=== PATIENT | female | born 1945 | race Caucasian/White ===

== ENCOUNTER 2017-07-11 14:15 | Observation (INO) ==
[2017-07-11 15:29] LABS: Basophils % 0.7 % (0.0-0.8); Eosinophils % 0.2 % (0.00-10.9); Hematocrit 40.1 VOL% (35.7-47.0); Hemoglobin 13.2 GM/DL (12.0-16.0); Immature Granulocytes % 0.4 %; Immature Granulocytes Absolute 0.02 #; Lymphocytes # 1.2 10*3/uL (1.4-4.0); Mean Corpuscular HGB Conc 32.9 GM/DL (32-36); Mean Corpuscular Hemoglobin 31 PG (27-34); Mean Corpuscular Volume 93.7 FL (87-102); Mean Platelet Volume 8.5 FL (9.6-12.0); Monocytes # 0.3 10*3/uL (0.11-0.8); Monocytes % 5.3 % (1.7-12.7); Neutrophils # 4.1 10*3/uL (1.4-7.4); Neutrophils % 72.4 % (38.7-73.9); Platelet Count 279 T/CUMM (130-400); Red Blood Count 4.28 MC/CUMM (3.8-5.5); Red Cell Distribution Width 12.6 % (9.3-17.3); White Blood Count 5.6 T/CUMM (4-12)
[2017-07-11 15:30] LABS: Apearance,Urine CLEAR (Clear); Bacteria,Urine Occasional /HPF (Few); Bilirubin,Urine Negative (Negative); Blood, Urine Negative (Negative); Glucose,Urine (UA) Negative (Negative); Hyaline Casts,Urine 1 /LPF (0-3); Ketones,Urine Negative (Negative); Mucus,Urine Occasional /LPF (Occasional); Nitrite,Urine Negative (Negative); Protein,Urine Negative; RBC,Urine 1 /HPF (0-4); Squamous Epithelial Cell,Urine Occasional /HPF (0-10); Urine Color Yellow (Yellow); Urine Specific Gravity 1.006 (1.001-1.035); Urine Urobilinogen < 2.0 EU/DL (0.2-1.0); WBC,Urine <1 /HPF (0-6)
[2017-07-11 15:54] LABS: Alanine Aminotransferase 28 U/L (13-56); Albumin 3.7 G/DL (3.4-5.0); Alkaline Phosphatase 133 U/L (45-117); Aspartate Amino Transferase 28 U/L (0-37); Bilirubin,Total < 0.39 MG/DL (0.2-1.0); Blood Urea Nitrogen 20 MG/DL (7-18); Calcium 9.4 MG/DL (8.5-10.1); Glucose 109 MG/DL (74-106); Osmolality,Calculated 278.7 MOS/KG (273-304); Potassium 4.6 MMOL/L (3.5-5.1); Sodium 138 MMOL/L (136-145); Total Protein 7.6 G/DL (6.4-8.3); Troponin I Only < 0.015 NG/ML (0.00-0.045)
[2017-07-11] MEDS ORDERED: ACETAMINOPHEN 325 MG TABLET PO PRN (17:38)
[2017-07-11] MEDS ORDERED: levETIRAcetam 500 MG TABLET PO SCH (20:00)
[2017-07-11] MEDS: SODIUM CHLORIDE 0.9% 1,000 ML IV SCH (20:52)
[2017-07-11] MEDS: ENOXAPARIN 40 MG/0.4 ML SYRINGE SUBCUT SCH (21:08)
[2017-07-11] MEDS: MELATONIN 3 MG TABLET PO SCH (21:08)
[2017-07-12 05:11] LABS: Basophils # 0.1 10*3/uL (0.0-0.2); Basophils % 0.8 % (0.0-0.8); Eosinophils # 0.1 10*3/uL (0.0-0.87); Eosinophils % 1.2 % (0.00-10.9); Hematocrit 37.3 VOL% (35.7-47.0); Hemoglobin 12.7 GM/DL (12.0-16.0); Immature Granulocytes % 0.4 %; Immature Granulocytes Absolute 0.03 #; Lymphocytes % 26.7 % (21.3-54.2); Mean Corpuscular Hemoglobin 32 PG (27-34); Mean Corpuscular Volume 92.6 FL (87-102); Mean Platelet Volume 8.7 FL (9.6-12.0); Monocytes # 0.6 10*3/uL (0.11-0.8); Neutrophils # 4.6 10*3/uL (1.4-7.4); Neutrophils % 62.9 % (38.7-73.9); Platelet Count 247 T/CUMM (130-400); Red Blood Count 4.03 MC/CUMM (3.8-5.5); Red Cell Distribution Width 12.9 % (9.3-17.3); White Blood Count 7.3 T/CUMM (4-12)
[2017-07-12] MEDS: LEVOTHYROXINE 25 MCG TABLET PO SCH (05:12)
[2017-07-12 05:48] LABS: Calcium 8.6 MG/DL (8.5-10.1); Potassium 4.2 MMOL/L (3.5-5.1); Thyroid Stimulating Hormone 1.03 uIU/ml (0.358-3.74)
[2017-07-12] MEDS ORDERED: CARVEDILOL 12.5 MG TABLET PO SCH ×2 (07:00→09:00)
[2017-07-12] MEDS: SODIUM CHLORIDE 0.9% 1,000 ML IV SCH ×2 (07:14→18:30)
[2017-07-12] MEDS: LISINOPRIL 20 MG TABLET PO SCH (10:13)
[2017-07-12] MEDS: ESTRADIOL 1 MG TABLET PO SCH (10:13)
[2017-07-12] MEDS: buPROPion SR 100 MG TABLET PO SCH (10:13)
[2017-07-12] MEDS: MULTIVITAMIN (CENTRUM) TABLET PO SCH (10:13)
[2017-07-12] MEDS: LORATADINE 10 MG TABLET PO SCH (10:13)
[2017-07-12] MEDS: THIAMINE 100 MG TABLET PO SCH (10:14)
[2017-07-12] MEDS: CARVEDILOL 12.5 MG TABLET PO SCH ×2 (10:14→21:21)
[2017-07-12] MEDS: POLYETHYLENE GLYCOL POWDER 17 GM PACK PO SCH (10:14)
[2017-07-12] MEDS: CALCIUM (CARBONATE)/VITAMIN D 600 MG-400 UNIT TABLET PO SCH (10:14)
[2017-07-12] MEDS: TOPIRAMATE 100 MG TABLET PO SCH (10:14)
[2017-07-12] MEDS: ESCITALOPRAM 10 MG TABLET PO SCH (10:14)
[2017-07-12] MEDS: POTASSIUM CHLORIDE 10 MEQ TABLET PO SCH (10:14)
[2017-07-12] MEDS ORDERED: SKIN HEALING OINT (AQUAPHOR) 50 GM TUBE TOP PRN (10:25)
[2017-07-12] MEDS: MELATONIN 3 MG TABLET PO SCH (21:21)
[2017-07-12] MEDS: ENOXAPARIN 40 MG/0.4 ML SYRINGE SUBCUT SCH (21:22)
[2017-07-13] MEDS: LEVOTHYROXINE 25 MCG TABLET PO SCH (05:37)
[2017-07-13] MEDS: SODIUM CHLORIDE 0.9% 1,000 ML IV SCH (09:09)
[2017-07-13] MEDS: CALCIUM (CARBONATE)/VITAMIN D 600 MG-400 UNIT TABLET PO SCH (09:12)
[2017-07-13] MEDS: ESTRADIOL 1 MG TABLET PO SCH (09:12)
[2017-07-13] MEDS: buPROPion SR 100 MG TABLET PO SCH (09:13)
[2017-07-13] MEDS: LORATADINE 10 MG TABLET PO SCH (09:13)
[2017-07-13] MEDS: MULTIVITAMIN (CENTRUM) TABLET PO SCH (09:13)
[2017-07-13] MEDS: LISINOPRIL 20 MG TABLET PO SCH (09:13)
[2017-07-13] MEDS: TOPIRAMATE 100 MG TABLET PO SCH (09:13)
[2017-07-13] MEDS: POTASSIUM CHLORIDE 10 MEQ TABLET PO SCH (09:14)
[2017-07-13] MEDS: ESCITALOPRAM 10 MG TABLET PO SCH (09:15)
[2017-07-13] MEDS: CARVEDILOL 12.5 MG TABLET PO SCH (09:15)
[2017-07-13] MEDS: THIAMINE 100 MG TABLET PO SCH (09:16)
[2017-07-13] MEDS: POLYETHYLENE GLYCOL POWDER 17 GM PACK PO SCH (09:16)
[2017-07-13 11:41] VITALS: BP 143/83
== END 2017-07-13 13:50 ==
LOC: EDUNIT# → EDBD → N.EDINP 14:15 → N.ED 14:15 → N.4E 18:43
PROVIDERS: ADMIT Hospitalist; ATTEND Hospitalist

== ENCOUNTER 2018-02-24 07:06 | Observation (INO) ==
[2018-02-24] MEDS ORDERED: ONDANSETRON 4 MG/2 ML VIAL IV STA (08:42)
[2018-02-24] MEDS ORDERED: SODIUM CHLORIDE 0.9% 500 ML IV STA (08:42)
[2018-02-24] MEDS ORDERED: PANTOPRAZOLE 40 MG VIAL IV STA (08:42)
[2018-02-24 09:16] LABS: Basophils # 0.1 10*3/uL (0.0-0.2); Basophils % 0.5 % (0.0-0.8); Eosinophils % 0.3 % (0.00-10.9); Hematocrit 41.1 VOL% (35.7-47.0); Hemoglobin 13.5 GM/DL (12.0-16.0); Immature Granulocytes % 0.3 %; Immature Granulocytes Absolute 0.03 #; Lymphocytes # 1.7 10*3/uL (1.4-4.0); Lymphocytes % 18.3 % (21.3-54.2); Mean Corpuscular HGB Conc 32.8 GM/DL (32-36); Mean Corpuscular Hemoglobin 31 PG (27-34); Mean Corpuscular Volume 93.4 FL (87-102); Mean Platelet Volume 10.1 FL (9.6-12.0); Monocytes # 1.2 10*3/uL (0.11-0.8); Monocytes % 12.7 % (1.7-12.7); Neutrophils # 6.2 10*3/uL (1.4-7.4); Neutrophils % 67.9 % (38.7-73.9); Platelet Count 252 T/CUMM (130-400); White Blood Count 9.2 T/CUMM (4-12)
[2018-02-24 09:28] LABS: PT Patient Result 10.4 SECS
[2018-02-24 09:43] LABS: Albumin 2.9 G/DL (3.4-5.0); Bilirubin,Total 0.6 MG/DL (0.2-1.0); Calcium 8.3 MG/DL (8.5-10.1); Osmolality,Calculated 284.7 MOS/KG (273-304); Potassium 4.6 MMOL/L (3.5-5.1); Total Protein 6.8 G/DL (6.4-8.3)
[2018-02-24] MEDS ORDERED: SODIUM CHLORIDE 0.9% 1,000 ML IV STA (09:45)
[2018-02-24] MEDS ORDERED: cefTRIAXone 1,000 MG in SODIUM CHLORIDE 0.9% 100 ML IV STA (10:49)
[2018-02-24] MEDS ORDERED: BISACODYL 5 MG TABLET PO PRN (11:18)
[2018-02-24] MEDS ORDERED: ONDANSETRON 4 MG/2 ML VIAL IV PRN (11:18)
[2018-02-24] MEDS ORDERED: ACETAMINOPHEN 325 MG TABLET PO PRN (11:18)
[2018-02-24] MEDS ORDERED: ENOXAPARIN 30 MG/0.3 ML SYRINGE SUBCUT SCH (12:00)
[2018-02-24 12:31] LABS: Apearance,Urine Slightly Hazy (Clear); Bacteria,Urine Many /HPF (Few); Bilirubin,Urine Negative (Negative); Blood, Urine Negative (Negative); Glucose,Urine (UA) Negative (Negative); Hyaline Casts,Urine 6 /LPF (0-3); Ketones,Urine 5 mg/dL (Negative); Mucus,Urine Few /LPF (Occasional); Nitrite,Urine Negative (Negative); Protein,Urine Negative; RBC,Urine 2 /HPF (0-4); Squamous Epithelial Cell,Urine Occasional /HPF (0-10); Urine Color Amber (Yellow); Urine Specific Gravity 1.021 (1.001-1.035); Urine Urobilinogen < 2.0 EU/DL (0.2-1.0); WBC,Urine 16 /HPF (0-6)
[2018-02-24] MEDS: SODIUM CHLORIDE 0.9% 1,000 ML IV SCH (19:40)
[2018-02-24] MEDS: MELATONIN 3 MG TABLET PO SCH (21:17)
[2018-02-24] MEDS: levETIRAcetam 500 MG TABLET PO SCH (21:18)
[2018-02-24] MEDS: DOCUSATE SODIUM 100 MG CAPSULE PO SCH (21:18)
[2018-02-25 05:24] LABS: Basophils # 0.1 10*3/uL (0.0-0.2); Basophils % 0.7 % (0.0-0.8); Eosinophils # 0.1 10*3/uL (0.0-0.87); Eosinophils % 1.7 % (0.00-10.9); Hematocrit 33.3 VOL% (35.7-47.0); Hemoglobin 10.6 GM/DL (12.0-16.0); Immature Granulocytes % 0.3 %; Immature Granulocytes Absolute 0.02 #; Lymphocytes # 1.5 10*3/uL (1.4-4.0); Mean Corpuscular HGB Conc 31.8 GM/DL (32-36); Mean Corpuscular Hemoglobin 31 PG (27-34); Mean Corpuscular Volume 95.7 FL (87-102); Mean Platelet Volume 9.5 FL (9.6-12.0); Monocytes % 13.7 % (1.7-12.7); Neutrophils # 4.3 10*3/uL (1.4-7.4); Neutrophils % 61.6 % (38.7-73.9); Platelet Count 212 T/CUMM (130-400); Red Blood Count 3.48 MC/CUMM (3.8-5.5); Red Cell Distribution Width 12.3 % (9.3-17.3); White Blood Count 6.9 T/CUMM (4-12)
[2018-02-25 06:19] LABS: Calcium 7.7 MG/DL (8.5-10.1); Osmolality,Calculated 286.3 MOS/KG (273-304); Potassium 4.3 MMOL/L (3.5-5.1); Thyroid Stimulating Hormone 0.8 uIU/ml (0.358-3.74)
[2018-02-25] MEDS: LEVOTHYROXINE 25 MCG TABLET PO SCH (07:41)
[2018-02-25] MEDS: busPIRone 10 MG TABLET PO SCH (10:58)
[2018-02-25] MEDS: DOCUSATE SODIUM 100 MG CAPSULE PO SCH ×2 (10:58→22:11)
[2018-02-25] MEDS: THIAMINE 100 MG TABLET PO SCH (10:58)
[2018-02-25] MEDS: MULTIVITAMIN (CENTRUM) TABLET PO SCH (10:58)
[2018-02-25] MEDS: buPROPion SR 100 MG TABLET PO SCH (10:58)
[2018-02-25] MEDS: ESCITALOPRAM 10 MG TABLET PO SCH (10:58)
[2018-02-25] MEDS: SOLIFENACIN 5 MG TABLET PO SCH (10:58)
[2018-02-25] MEDS: PANTOPRAZOLE 40 MG TABLET PO SCH (10:59)
[2018-02-25] MEDS: LORATADINE 10 MG TABLET PO SCH (10:59)
[2018-02-25] MEDS: CALCIUM (CARBONATE)/VITAMIN D 600 MG-400 UNIT TABLET PO SCH (10:59)
[2018-02-25] MEDS: TOPIRAMATE 100 MG TABLET PO SCH (11:01)
[2018-02-25] MEDS: levETIRAcetam 500 MG TABLET PO SCH ×2 (11:01→22:11)
[2018-02-25] MEDS: POLYETHYLENE GLYCOL POWDER 17 GM PACK PO SCH (11:02)
[2018-02-25] MEDS: SODIUM CHLORIDE 0.9% 1,000 ML IV SCH ×2 (11:41→14:50)
[2018-02-25] MEDS ORDERED: BISACODYL 5 MG TABLET PO ONE (12:00)
[2018-02-25] MEDS ORDERED: POLYETHYLENE GLYCOL POWDER 255 GM BOTTLE PO ONE (12:38)
[2018-02-25] MEDS: risperiDONE 0.5 MG TABLET PO SCH (13:19)
[2018-02-25] MEDS: cefTRIAXone 1,000 MG in SYRINGE 1 EACH IV SCH (15:58)
[2018-02-25] MEDS ORDERED: MAGNESIUM CITRATE 300 ML BOTTLE PO ONE (20:39)
[2018-02-25] MEDS: MELATONIN 3 MG TABLET PO SCH (22:11)
[2018-02-26] MEDS: SODIUM CHLORIDE 0.9% 1,000 ML IV SCH (06:00)
[2018-02-26] MEDS: LEVOTHYROXINE 25 MCG TABLET PO SCH (06:01)
[2018-02-26 06:21] LABS: Basophils % 0.7 % (0.0-0.8); Eosinophils # 0.1 10*3/uL (0.0-0.87); Eosinophils % 2.1 % (0.00-10.9); Hematocrit 34.2 VOL% (35.7-47.0); Immature Granulocytes % 0.2 %; Immature Granulocytes Absolute 0.01 #; Lymphocytes # 1.2 10*3/uL (1.4-4.0); Lymphocytes % 20.5 % (21.3-54.2); Mean Corpuscular HGB Conc 32.2 GM/DL (32-36); Mean Corpuscular Hemoglobin 31 PG (27-34); Mean Platelet Volume 8.8 FL (9.6-12.0); Monocytes # 0.7 10*3/uL (0.11-0.8); Neutrophils # 3.6 10*3/uL (1.4-7.4); Neutrophils % 63.5 % (38.7-73.9); Platelet Count 211 T/CUMM (130-400); Red Cell Distribution Width 12.1 % (9.3-17.3); White Blood Count 5.6 T/CUMM (4-12)
[2018-02-26 06:29] LABS: INR 0.9; PT Patient Result 9.8 SECS
[2018-02-26 06:50] LABS: Calcium 8.2 MG/DL (8.5-10.1); Osmolality,Calculated 275.5 MOS/KG (273-304); Potassium 3.4 MMOL/L (3.5-5.1)
[2018-02-26] MEDS ORDERED: PROPOFOL 200 MG/20 ML VIAL IV ONE (10:00)
[2018-02-26] MEDS ORDERED: LIDOCAINE 100 MG/5 ML SYRINGE ONE (10:00)
[2018-02-26] MEDS: busPIRone 10 MG TABLET PO SCH (14:50)
[2018-02-26] MEDS: MULTIVITAMIN (CENTRUM) TABLET PO SCH (14:50)
[2018-02-26] MEDS: CALCIUM (CARBONATE)/VITAMIN D 600 MG-400 UNIT TABLET PO SCH (14:50)
[2018-02-26] MEDS: LORATADINE 10 MG TABLET PO SCH (14:51)
[2018-02-26] MEDS: POLYETHYLENE GLYCOL POWDER 17 GM PACK PO SCH (14:51)
[2018-02-26] MEDS: levETIRAcetam 500 MG TABLET PO SCH ×2 (14:51→20:17)
[2018-02-26] MEDS: PANTOPRAZOLE 40 MG TABLET PO SCH (14:51)
[2018-02-26] MEDS: TOPIRAMATE 100 MG TABLET PO SCH (14:51)
[2018-02-26] MEDS: ESCITALOPRAM 10 MG TABLET PO SCH (14:51)
[2018-02-26] MEDS: DOCUSATE SODIUM 100 MG CAPSULE PO SCH ×2 (14:51→20:17)
[2018-02-26] MEDS: SOLIFENACIN 5 MG TABLET PO SCH (14:52)
[2018-02-26] MEDS: THIAMINE 100 MG TABLET PO SCH (14:52)
[2018-02-26] MEDS: buPROPion SR 100 MG TABLET PO SCH (14:52)
[2018-02-26] MEDS: cefTRIAXone 1,000 MG in SYRINGE 1 EACH IV SCH (15:11)
[2018-02-26] MEDS: risperiDONE 0.5 MG TABLET PO SCH (15:11)
[2018-02-26] MEDS: MELATONIN 3 MG TABLET PO SCH (20:17)
[2018-02-27] MEDS: SODIUM CHLORIDE 0.9% 1,000 ML IV SCH ×2 (01:53→10:48)
[2018-02-27 05:38] LABS: Basophils % 0.7 % (0.0-0.8); Eosinophils # 0.2 10*3/uL (0.0-0.87); Eosinophils % 4.2 % (0.00-10.9); Hematocrit 30.7 VOL% (35.7-47.0); Immature Granulocytes % 0.3 %; Immature Granulocytes Absolute 0.02 #; Lymphocytes # 1.3 10*3/uL (1.4-4.0); Lymphocytes % 23.3 % (21.3-54.2); Mean Corpuscular HGB Conc 32.6 GM/DL (32-36); Mean Corpuscular Hemoglobin 31 PG (27-34); Mean Corpuscular Volume 93.9 FL (87-102); Mean Platelet Volume 9.8 FL (9.6-12.0); Monocytes # 0.7 10*3/uL (0.11-0.8); Monocytes % 11.5 % (1.7-12.7); Neutrophils # 3.4 10*3/uL (1.4-7.4); Platelet Count 218 T/CUMM (130-400); Red Blood Count 3.27 MC/CUMM (3.8-5.5); Red Cell Distribution Width 12.2 % (9.3-17.3); White Blood Count 5.7 T/CUMM (4-12)
[2018-02-27 06:08] LABS: Calcium 7.7 MG/DL (8.5-10.1); Osmolality,Calculated 281.3 MOS/KG (273-304); Potassium 3.7 MMOL/L (3.5-5.1)
[2018-02-27] MEDS: LEVOTHYROXINE 25 MCG TABLET PO SCH (06:56)
[2018-02-27] MEDS: LORATADINE 10 MG TABLET PO SCH (08:26)
[2018-02-27] MEDS: busPIRone 10 MG TABLET PO SCH (08:26)
[2018-02-27] MEDS: levETIRAcetam 500 MG TABLET PO SCH (08:26)
[2018-02-27] MEDS: buPROPion SR 100 MG TABLET PO SCH (08:26)
[2018-02-27] MEDS: SOLIFENACIN 5 MG TABLET PO SCH (08:26)
[2018-02-27] MEDS: CALCIUM (CARBONATE)/VITAMIN D 600 MG-400 UNIT TABLET PO SCH (08:26)
[2018-02-27] MEDS: PANTOPRAZOLE 40 MG TABLET PO SCH (08:26)
[2018-02-27] MEDS: ESCITALOPRAM 10 MG TABLET PO SCH (08:26)
[2018-02-27] MEDS: POLYETHYLENE GLYCOL POWDER 17 GM PACK PO SCH (08:26)
[2018-02-27] MEDS: THIAMINE 100 MG TABLET PO SCH (08:26)
[2018-02-27] MEDS: TOPIRAMATE 100 MG TABLET PO SCH (08:26)
[2018-02-27] MEDS: MULTIVITAMIN (CENTRUM) TABLET PO SCH (08:26)
[2018-02-27] MEDS: DOCUSATE SODIUM 100 MG CAPSULE PO SCH (08:27)
[2018-02-27] MEDS ORDERED: ZINC OXIDE PASTE 113 GM TUBE TOP SCH (11:00)
[2018-02-27] MEDS: risperiDONE 0.5 MG TABLET PO SCH (13:09)
[2018-02-27 13:23] VITALS: BP 154/86
[2018-02-27] MEDS: cefTRIAXone 1,000 MG in SYRINGE 1 EACH IV SCH (14:04)
== END 2018-02-27 14:10 ==
LOC: EDUNIT# → EDBD → N.ED 07:06 → N.EDINP 07:06 → SUATTDRO 11:18 → N.EDINP 14:08 → N.5E 14:17
PROVIDERS: ADMIT Internal Medicine; ATTEND Internal Medicine Cardiovascular Disease

== ENCOUNTER 2018-08-12 08:04 | Inpatient (IN) ==
[2018-08-12] MEDS ORDERED: SODIUM CHLORIDE 0.9% 1,000 ML IV STA ×2 (08:31→09:42)
[2018-08-12 09:12] LABS: Basophils % 0.6 % (0.0-0.8); Eosinophils % 0.1 % (0.00-10.9); Hematocrit 43.6 VOL% (35.7-47.0); Hemoglobin 13.6 GM/DL (12.0-16.0); Immature Granulocytes % 0.3 %; Immature Granulocytes Absolute 0.02 #; Lymphocytes # 1.2 10*3/uL (1.4-4.0); Lymphocytes % 17.2 % (21.3-54.2); Mean Corpuscular HGB Conc 31.2 GM/DL (32-36); Mean Corpuscular Volume 99.8 FL (87-102); Mean Platelet Volume 9.1 FL (9.6-12.0); Monocytes % 6.3 % (1.7-12.7); Neutrophils % 75.5 % (38.7-73.9); Platelet Count 292 T/CUMM (130-400); Red Blood Count 4.37 MC/CUMM (3.8-5.5); Red Cell Distribution Width 13.2 % (9.3-17.3)
[2018-08-12 09:21] LABS: PT Patient Result 10.4 SECS; Partial Thromboplastin Time 28.4 SECS (0-40)
[2018-08-12 09:29] LABS: Albumin 3.5 G/DL (3.4-5.0); Bilirubin,Total 0.4 MG/DL (0.2-1.0); Calcium 8.8 MG/DL (8.5-10.1); Osmolality,Calculated 289.3 MOS/KG (273-304); Total Protein 6.8 G/DL (6.4-8.3)
[2018-08-12] MEDS ORDERED: NOREPINEPHRINE 4 MG/4 ML VIAL IV ONE (09:44)
[2018-08-12 09:51] LABS: Apearance,Urine CLEAR (Clear); Bilirubin,Urine Negative (Negative); Blood, Urine Negative (Negative); Glucose,Urine (UA) Negative (Negative); Hyaline Casts,Urine 12 /LPF (0-3); Ketones,Urine Negative (Negative); Mucus,Urine Occasional /LPF (Occasional); Nitrite,Urine Negative (Negative); Protein,Urine Negative; RBC,Urine <1 /HPF (0-4); Squamous Epithelial Cell,Urine Occasional /HPF (0-10); Urine Color Amber (Yellow); Urine Specific Gravity 1.014 (1.001-1.035); Urine Urobilinogen < 2.0 EU/DL (0.2-1.0); WBC,Urine 1 /HPF (0-6)
[2018-08-12 10:01] LABS: Barbiturates Screen,Urine Negative (Negative); Benzodiazepines Screen,Urine Negative (Negative); Cannabinoid Screen,Urine Negative (Negative); Opiate Screen,Urine Negative (Negative); Phencyclidine Screen,Urine Negative (Negative)
[2018-08-12] MEDS: NOREPINEPHRINE 8 MG in SODIUM CHLORIDE 0.9% 242 ML IV PRN ×3 (10:04→10:15)
[2018-08-12] MEDS ORDERED: LACTULOSE 20 GM/30 ML UDCUP PO PRN (11:00)
[2018-08-12] MEDS ORDERED: ALBUTEROL 2.5 MG/3 ML NEB RESP TX PRN (11:00)
[2018-08-12] MEDS ORDERED: ONDANSETRON 4 MG/2 ML VIAL IV PRN (11:00)
[2018-08-12] MEDS ORDERED: ACETAMINOPHEN 325 MG TABLET PO PRN (11:00)
[2018-08-12] MEDS ORDERED: PROMETHAZINE 25 MG/1 ML VIAL IM PRN (11:00)
[2018-08-12] MEDS ORDERED: SODIUM CHLORIDE 0.9% 500 ML IV STA (11:02)
[2018-08-12] MEDS ORDERED: PIPERACILLIN/TAZOBACTAM 3,375 MG in SODIUM CHLORIDE 0.9% 100 ML IV STA (11:06)
[2018-08-12] MEDS ORDERED: NALOXONE 0.4 MG/ML VIAL ONE (11:17)
[2018-08-12] MEDS ORDERED: NALOXONE 0.4 MG/ML VIAL IV STA (11:20)
[2018-08-12] MEDS: SODIUM CHLORIDE 0.9% 1,000 ML IV SCH ×2 (12:18→20:40)
[2018-08-12 12:21] LABS: ABG Base Excess -7.9 MMOL/L (-2.5-2.5); ABG HCO3 18.1 MMOL/L (20-26); ABG Oxygen Saturation 92.9 % (95-100); ABG PCO2 47.6 MM HG (35-48); ABG PH 7.232 (7.35-7.45); ABG PO2 79.4 MM HG (80-95); ABG TCO2 17.9 MMOL/L (23-27); Allen Test Positive
[2018-08-12] MEDS: ENOXAPARIN 30 MG/0.3 ML SYRINGE SUBCUT SCH (13:10)
[2018-08-12] MEDS: FAMOTIDINE 20 MG/2 ML VIAL IV SCH (13:12)
[2018-08-12] MEDS ORDERED: LORazepam 2 MG/1 ML VIAL IV PRN (13:52)
[2018-08-12] MEDS ORDERED: LORazepam 2 MG/1 ML VIAL ONE (14:03)
[2018-08-12] MEDS ORDERED: GLUCAGON 1 MG VIAL IM PRN (14:12)
[2018-08-12] MEDS ORDERED: DEXTROSE 50% 25 GM/50 ML SYRINGE IV PRN (14:12)
[2018-08-12 15:11] LABS: Calcium 7.6 MG/DL (8.5-10.1); Osmolality,Calculated 293.8 MOS/KG (273-304)
[2018-08-12] MEDS: INSULIN LISPRO 100 UNIT/ML SUBCUT SCH ×2 (17:00→21:44)
[2018-08-12] MEDS: LORazepam 2 MG/1 ML VIAL IV PRN (17:57)
[2018-08-12] MEDS: PIPERACILLIN/TAZOBACTAM 3,375 MG in SODIUM CHLORIDE 0.9% 100 ML IV SCH (20:30)
[2018-08-12] MEDS: TOPIRAMATE 25 MG TABLET PO SCH (21:45)
[2018-08-13] MEDS: FAMOTIDINE 20 MG/2 ML VIAL IV SCH ×2 (02:23→13:05)
[2018-08-13 04:44] LABS: Basophils # 0.1 10*3/uL (0.0-0.2); Eosinophils # 0.1 10*3/uL (0.0-0.87); Eosinophils % 1.9 % (0.00-10.9); Hematocrit 37.5 VOL% (35.7-47.0); Hemoglobin 11.5 GM/DL (12.0-16.0); Immature Granulocytes % 0.3 %; Immature Granulocytes Absolute 0.02 #; Lymphocytes # 1.4 10*3/uL (1.4-4.0); Lymphocytes % 23.6 % (21.3-54.2); Mean Corpuscular HGB Conc 30.7 GM/DL (32-36); Mean Corpuscular Volume 101.9 FL (87-102); Mean Platelet Volume 9.2 FL (9.6-12.0); Neutrophils % 59.2 % (38.7-73.9); Platelet Count 195 T/CUMM (130-400); Red Blood Count 3.68 MC/CUMM (3.8-5.5); Red Cell Distribution Width 13.1 % (9.3-17.3); White Blood Count 5.8 T/CUMM (4-12)
[2018-08-13] MEDS: PIPERACILLIN/TAZOBACTAM 3,375 MG in SODIUM CHLORIDE 0.9% 100 ML IV SCH ×3 (04:48→20:20)
[2018-08-13 04:52] LABS: Risk Ratio 4.33; VLDL CHOLESTEROL 31.6 MG/DL
[2018-08-13] MEDS: LEVOTHYROXINE 25 MCG TABLET PO SCH (05:23)
[2018-08-13] MEDS: SODIUM CHLORIDE 0.9% 1,000 ML IV SCH (05:51)
[2018-08-13] MEDS: LORazepam 2 MG/1 ML VIAL IV PRN (05:51)
[2018-08-13 07:36] LABS: Osmolality,Calculated 298.3 MOS/KG (273-304)
[2018-08-13] MEDS: INSULIN LISPRO 100 UNIT/ML SUBCUT SCH ×4 (07:40→22:19)
[2018-08-13] MEDS ORDERED: ERGOCALCIFEROL 50,000 UNIT CAPSULE PO SCH (09:00)
[2018-08-13] MEDS: THIAMINE 100 MG TABLET PO SCH (09:46)
[2018-08-13] MEDS: MULTIVITAMIN (CENTRUM) TABLET PO SCH (09:46)
[2018-08-13] MEDS: levETIRAcetam 500 MG TABLET PO SCH (10:52)
[2018-08-13] MEDS: ENOXAPARIN 30 MG/0.3 ML SYRINGE SUBCUT SCH (11:29)
[2018-08-13] MEDS: DEXTROSE 5% NACL 0.45% 1,000 ML IV SCH ×2 (11:29→22:20)
[2018-08-13] MEDS: CARVEDILOL 12.5 MG TABLET PO SCH (15:15)
[2018-08-13] MEDS ORDERED: ZIPRASIDONE 20 MG/1 ML VIAL IM ONE (15:15)
[2018-08-13] MEDS: TOPIRAMATE 25 MG TABLET PO SCH (22:20)
[2018-08-14] MEDS: FAMOTIDINE 20 MG/2 ML VIAL IV SCH ×2 (01:50→15:44)
[2018-08-14] MEDS: PIPERACILLIN/TAZOBACTAM 3,375 MG in SODIUM CHLORIDE 0.9% 100 ML IV SCH ×2 (03:04→12:08)
[2018-08-14 04:43] LABS: Basophils # 0.1 10*3/uL (0.0-0.2); Basophils % 0.8 % (0.0-0.8); Eosinophils # 0.2 10*3/uL (0.0-0.87); Eosinophils % 2.5 % (0.00-10.9); Hematocrit 35.8 VOL% (35.7-47.0); Hemoglobin 11.9 GM/DL (12.0-16.0); Immature Granulocytes % 0.2 %; Immature Granulocytes Absolute 0.01 #; Lymphocytes # 1.9 10*3/uL (1.4-4.0); Lymphocytes % 30.1 % (21.3-54.2); Mean Corpuscular HGB Conc 33.2 GM/DL (32-36); Mean Corpuscular Volume 94.5 FL (87-102); Mean Platelet Volume 9.5 FL (9.6-12.0); Monocytes % 11.2 % (1.7-12.7); Neutrophils % 55.2 % (38.7-73.9); Platelet Count 242 T/CUMM (130-400); Red Blood Count 3.79 MC/CUMM (3.8-5.5); Red Cell Distribution Width 12.7 % (9.3-17.3); White Blood Count 6.3 T/CUMM (4-12)
[2018-08-14 04:49] LABS: Calcium 8.4 MG/DL (8.5-10.1); Osmolality,Calculated 280.1 MOS/KG (273-304)
[2018-08-14] MEDS: LEVOTHYROXINE 25 MCG TABLET PO SCH (05:43)
[2018-08-14] MEDS: DEXTROSE 5% NACL 0.45% 1,000 ML IV SCH (06:20)
[2018-08-14] MEDS ORDERED: MAGNESIUM SULF RIDER 2 GM in PREMIX 1 EACH IV ONE (07:07)
[2018-08-14] MEDS ORDERED: POTASSIUM CHLORIDE 20 MEQ/15 ML UDCUP PO ONE (07:08)
[2018-08-14] MEDS ORDERED: POTASSIUM CHLORIDE INJ 100 MEQ in SODIUM CHLORIDE 0.9% 1,000 ML IV SCH (07:30)
[2018-08-14] MEDS: INSULIN LISPRO 100 UNIT/ML SUBCUT SCH ×4 (10:44→21:48)
[2018-08-14] MEDS: THIAMINE 100 MG TABLET PO SCH (12:07)
[2018-08-14] MEDS: ENOXAPARIN 30 MG/0.3 ML SYRINGE SUBCUT SCH (12:07)
[2018-08-14] MEDS: MULTIVITAMIN (CENTRUM) TABLET PO SCH (12:07)
[2018-08-14] MEDS: levETIRAcetam 500 MG TABLET PO SCH (12:07)
[2018-08-14] MEDS: CARVEDILOL 12.5 MG TABLET PO SCH ×2 (12:07→15:45)
[2018-08-14] MEDS ORDERED: ACETAMINOPHEN 325 MG TABLET PO PRN (13:24)
[2018-08-14 15:15] LABS: Levetiracetam (Keppra) 16.8 mcg/mL
[2018-08-14] MEDS: sulfaSALAzine 500 MG TABLET PO SCH ×2 (15:45→22:28)
[2018-08-14] MEDS ORDERED: TOPIRAMATE 100 MG TABLET PO SCH (20:00)
[2018-08-14] MEDS: TOPIRAMATE 25 MG TABLET PO SCH (21:48)
[2018-08-15] MEDS: FAMOTIDINE 20 MG/2 ML VIAL IV SCH (03:01)
[2018-08-15 04:53] LABS: Calcium 8.5 MG/DL (8.5-10.1); Osmolality,Calculated 280.3 MOS/KG (273-304)
[2018-08-15] MEDS: sulfaSALAzine 500 MG TABLET PO SCH (05:24)
[2018-08-15] MEDS: LEVOTHYROXINE 25 MCG TABLET PO SCH (05:24)
[2018-08-15] MEDS ORDERED: SOLIFENACIN 5 MG TABLET PO SCH (08:00)
[2018-08-15] MEDS ORDERED: CALCIUM (CARBONATE)/VITAMIN D 600 MG-400 UNIT TABLET PO SCH (08:00)
[2018-08-15] MEDS ORDERED: ESCITALOPRAM 10 MG TABLET PO SCH (08:00)
[2018-08-15] MEDS: THIAMINE 100 MG TABLET PO SCH (08:54)
[2018-08-15] MEDS: MULTIVITAMIN (CENTRUM) TABLET PO SCH (08:54)
[2018-08-15] MEDS: CARVEDILOL 12.5 MG TABLET PO SCH (08:54)
[2018-08-15] MEDS: levETIRAcetam 500 MG TABLET PO SCH (08:54)
[2018-08-15] MEDS: INSULIN LISPRO 100 UNIT/ML SUBCUT SCH (09:07)
[2018-08-15 11:39] VITALS: BP 164/93
== END 2018-08-15 11:00 | DRG 100 ==
LOC: EDUNIT# → EDBD → N.ED 08:04 → N.EDINP 10:58 → N.CC 13:28 → N.5E 08-14 00:09
PROVIDERS: ADMIT Emergency Medicine; ATTEND Emergency Medicine

== ENCOUNTER 2019-08-01 21:06 | Inpatient (IN) ==
[2019-08-01] MEDS ORDERED: AZITHROMYCIN INJ 500 MG in SODIUM CHLORIDE 0.9% 250 ML IV STA (22:04)
[2019-08-01] MEDS ORDERED: ONDANSETRON 4 MG/2 ML VIAL IV STA (22:04)
[2019-08-01] MEDS ORDERED: methylPREDNISolone SOD SUC 125 MG/2 ML VIAL IV STA (22:04)
[2019-08-01] MEDS: TERBUTALINE 1 MG/1 ML VIAL SUBCUT SCH ×2 (23:05→23:35)
[2019-08-01 23:24] LABS: Basophils % 0.2 % (0.0-0.8); Eosinophils % 0.3 % (0.00-10.9); Hematocrit 34.4 VOL% (35.7-47.0); Hemoglobin 11.7 GM/DL (12.0-16.0); Immature Granulocytes % 2.1 %; Immature Granulocytes Absolute 0.19 #; Lymphocytes # 1.6 10*3/uL (1.4-4.0); Lymphocytes % 18.2 % (21.3-54.2); Mean Corpuscular Volume 98.3 FL (87-102); Mean Platelet Volume 9.2 FL (9.6-12.0); Monocytes % 5.1 % (1.7-12.7); Neutrophils % 74.1 % (38.7-73.9); Platelet Count 369 T/CUMM (130-400); Red Cell Distribution Width 12.5 % (9.3-17.3); White Blood Count 8.9 T/CUMM (4-12)
[2019-08-01 23:47] LABS: Alanine Aminotransferase 44 U/L (13-56); Albumin 2.3 G/DL (3.4-5.0); Alkaline Phosphatase 249 U/L (45-117); Aspartate Amino Transferase 40 U/L (0-37); Blood Urea Nitrogen 40 MG/DL (7-18); Calcium 8.6 MG/DL (8.5-10.1); Estimated Glom Filtration Rate 38 ML/MIN; Glucose 111 MG/DL (74-106); Osmolality,Calculated 274.5 MOS/KG (273-304); Total Protein 7.2 G/DL (6.4-8.3); Troponin I < 0.015 NG/ML (0.00-0.045)
[2019-08-01 23:49] LABS: INR 1.1; PT Patient Result 11.9 SECS (9.8-11.9); Partial Thromboplastin Time 32.3 SECS (23.9-33.8)
[2019-08-02] MEDS ORDERED: ENOXAPARIN 100 MG/ML SYRINGE SUBCUT STA (00:19)
[2019-08-02 00:56] LABS: Apearance,Urine CLOUDY (Clear); Bilirubin,Urine Negative (Negative); Blood, Urine Negative (Negative); Glucose,Urine (UA) Negative (Negative); Granular Casts,Urine 1 /LPF (0-1); Hyaline Casts,Urine 36 /LPF (0-3); Ketones,Urine Negative (Negative); Mucus,Urine Occasional /LPF (Occasional); Nitrite,Urine Negative (Negative); Protein,Urine 30 MG/DL; RBC,Urine 2 /HPF (0-4); Urine Color Amber (Yellow); Urine Specific Gravity 1.021 (1.001-1.035); Urine Urobilinogen < 2.0 EU/DL (0.2-1.0); WBC,Urine 2 /HPF (0-6)
[2019-08-02] MEDS ORDERED: ONDANSETRON 4 MG/2 ML VIAL IV PRN (01:39)
[2019-08-02] MEDS ORDERED: DEXTROSE 50% 25 GM/50 ML VIAL IV PRN (01:39)
[2019-08-02] MEDS ORDERED: GLUCAGON 1 MG VIAL IM PRN (01:39)
[2019-08-02 01:56] LABS: Eosinophils 1 % (0-10); Lymphocytes 18 % (20-55); Metamyelocytes 2 %; Segmented Neutrophils 74 % (50-85); Total Cells Counted 100
[2019-08-02 02:00] LABS: Atypical Lymphocytes Few; Hypochromasia 1+; Platelet Estimate Normal; Reactive Lymphocytes 1+
[2019-08-02] MEDS: POTASSIUM CHLORIDE INJ 40 MEQ in SODIUM CHLORIDE 0.9% 1,000 ML IV SCH ×2 (05:36→17:10)
[2019-08-02] MEDS: sulfaSALAzine 500 MG TABLET PO SCH ×3 (05:36→20:55)
[2019-08-02] MEDS ORDERED: LEVOTHYROXINE 25 MCG TABLET PO SCH (06:00)
[2019-08-02 06:38] LABS: Basophils % 0.2 % (0.0-0.8); Hematocrit 33.1 VOL% (35.7-47.0); Immature Granulocytes % 1.7 %; Immature Granulocytes Absolute 0.11 #; Lymphocytes # 0.7 10*3/uL (1.4-4.0); Lymphocytes % 10.7 % (21.3-54.2); Mean Corpuscular HGB Conc 33.2 GM/DL (32-36); Mean Corpuscular Volume 97.6 FL (87-102); Mean Platelet Volume 9.5 FL (9.6-12.0); Monocytes % 1.2 % (1.7-12.7); Neutrophils % 86.2 % (38.7-73.9); Platelet Count 357 T/CUMM (130-400); Red Blood Count 3.39 MC/CUMM (3.8-5.5); Red Cell Distribution Width 12.3 % (9.3-17.3); White Blood Count 6.5 T/CUMM (4-12)
[2019-08-02 07:18] LABS: Hypochromasia 1+
[2019-08-02 07:19] LABS: Platelet Estimate Normal
[2019-08-02] MEDS ORDERED: levETIRAcetam 500 MG TABLET PO SCH (08:00)
[2019-08-02 08:21] LABS: Albumin 2.1 G/DL (3.4-5.0); Bilirubin,Total 0.7 MG/DL (0.2-1.0); Calcium 8.7 MG/DL (8.5-10.1); Ferritin 769.4 ng/ml (8-252); Osmolality,Calculated 279.4 MOS/KG (273-304); Total Protein 6.9 G/DL (6.4-8.3)
[2019-08-02] MEDS ORDERED: POTASSIUM CHLORIDE RIDER 10 MEQ in PREMIX 1 EACH IV PRN (08:53)
[2019-08-02] MEDS: ENOXAPARIN 40 MG/0.4 ML SYRINGE SUBCUT SCH (10:04)
[2019-08-02] MEDS: cefTRIAXone 2,000 MG in SYRINGE 1 EACH IV SCH (10:04)
[2019-08-02] MEDS: FAMOTIDINE 20 MG/2 ML VIAL IV SCH ×2 (10:07→21:11)
[2019-08-02 10:57] LABS: ABG Base Excess -1.7 MMOL/L (-2.5-2.5); ABG HCO3 22.9 MMOL/L (20-26); ABG Oxygen Saturation 95.2 % (95-100); ABG PCO2 34.3 MM HG (35-48); ABG PH 7.418 (7.35-7.45); ABG PO2 78.1 MM HG (80-95); ABG TCO2 19.8 MMOL/L (23-27)
[2019-08-02 11:05] LABS: Basophils % 0.2 % (0.0-0.8); Hematocrit 34.6 VOL% (35.7-47.0); Hemoglobin 11.6 GM/DL (12.0-16.0); Immature Granulocytes % 2.8 %; Immature Granulocytes Absolute 0.13 #; Lymphocytes # 0.9 10*3/uL (1.4-4.0); Lymphocytes % 19.3 % (21.3-54.2); Mean Corpuscular HGB Conc 33.5 GM/DL (32-36); Mean Platelet Volume 9.3 FL (9.6-12.0); Monocytes % 2.4 % (1.7-12.7); Neutrophils % 75.3 % (38.7-73.9); Platelet Count 360 T/CUMM (130-400); Red Blood Count 3.53 MC/CUMM (3.8-5.5); Red Cell Distribution Width 12.4 % (9.3-17.3); White Blood Count 4.6 T/CUMM (4-12)
[2019-08-02 11:26] LABS: Band Neutrophils 1 % (0-10); Lymphocytes 23 % (20-55); Segmented Neutrophils 75 % (50-85); Total Cells Counted 100
[2019-08-02 11:36] LABS: Hypochromasia 1+
[2019-08-02 11:37] LABS: Platelet Estimate Normal
[2019-08-02] MEDS: CALCIUM (CARBONATE)/VITAMIN D 600 MG-400 UNIT TABLET PO SCH (12:01)
[2019-08-02] MEDS: AZITHROMYCIN 250 MG TABLET PO SCH (12:01)
[2019-08-02] MEDS: ESCITALOPRAM 10 MG TABLET PO SCH (12:01)
[2019-08-02] MEDS: carvediloL 12.5 MG TABLET PO SCH ×2 (12:01→17:49)
[2019-08-02 12:09] LABS: Sedimentation Rate-Westergren 43 MM/HR (0-30)
[2019-08-02] MEDS: TOPIRAMATE 25 MG TABLET PO SCH (20:55)
[2019-08-03] MEDS: POTASSIUM CHLORIDE INJ 40 MEQ in SODIUM CHLORIDE 0.9% 1,000 ML IV SCH ×2 (03:30→14:58)
[2019-08-03 04:16] LABS: Allen Test Positive
[2019-08-03 04:17] LABS: ABG Base Excess -1.6 MMOL/L (-2.5-2.5); ABG Oxygen Saturation 97.1 % (95-100); ABG PH 7.422 (7.35-7.45); ABG PO2 90.6 MM HG (80-95)
[2019-08-03] MEDS: sulfaSALAzine 500 MG TABLET PO SCH ×3 (06:20→21:15)
[2019-08-03] MEDS: LEVOTHYROXINE 100 MCG VIAL IV SCH (06:22)
[2019-08-03 08:25] LABS: Basophils % 0.2 % (0.0-0.8); Eosinophils % 0.1 % (0.00-10.9); Hemoglobin 10.8 GM/DL (12.0-16.0); Lymphocytes # 0.7 10*3/uL (1.4-4.0); Lymphocytes % 6.6 % (21.3-54.2); Mean Corpuscular HGB Conc 32.7 GM/DL (32-36); Mean Platelet Volume 9.1 FL (9.6-12.0); Monocytes % 3.6 % (1.7-12.7); Neutrophils % 87.5 % (38.7-73.9); Platelet Count 460 T/CUMM (130-400); Red Cell Distribution Width 12.5 % (9.3-17.3); White Blood Count 10.1 T/CUMM (4-12)
[2019-08-03 08:55] LABS: Alanine Aminotransferase 35 U/L (13-56); Albumin 1.8 G/DL (3.4-5.0); Alkaline Phosphatase 220 U/L (45-117); Aspartate Amino Transferase 40 U/L (0-37); Bilirubin,Total < 0.39 MG/DL (0.2-1.0); Blood Urea Nitrogen 32 MG/DL (7-18); Calcium 8.3 MG/DL (8.5-10.1); Estimated Glom Filtration Rate 49 ML/MIN; Ferritin 624.7 ng/ml (8-252); Glucose 178 MG/DL (74-106); Total Protein 6.1 G/DL (6.4-8.3)
[2019-08-03] MEDS: carvediloL 12.5 MG TABLET PO SCH ×2 (09:30→16:38)
[2019-08-03] MEDS: ESCITALOPRAM 10 MG TABLET PO SCH (09:30)
[2019-08-03] MEDS: cefTRIAXone 2,000 MG in SYRINGE 1 EACH IV SCH (09:30)
[2019-08-03] MEDS: CALCIUM (CARBONATE)/VITAMIN D 600 MG-400 UNIT TABLET PO SCH (09:30)
[2019-08-03] MEDS: FAMOTIDINE 20 MG/2 ML VIAL IV SCH ×2 (09:33→20:31)
[2019-08-03 10:48] LABS: Sedimentation Rate-Westergren 89 MM/HR (0-30)
[2019-08-03] MEDS: AZITHROMYCIN 250 MG TABLET PO SCH (11:20)
[2019-08-03] MEDS: ENOXAPARIN 40 MG/0.4 ML SYRINGE SUBCUT SCH (11:37)
[2019-08-03] MEDS: TOPIRAMATE 25 MG TABLET PO SCH (20:31)
[2019-08-04] MEDS: POTASSIUM CHLORIDE INJ 40 MEQ in SODIUM CHLORIDE 0.9% 1,000 ML IV SCH (01:10)
[2019-08-04 03:56] LABS: ABG Base Excess -2.8 MMOL/L (-2.5-2.5); ABG Oxygen Saturation 95.2 % (95-100); ABG PCO2 29.7 MM HG (35-48); ABG PH 7.444 (7.35-7.45); ABG PO2 71.5 MM HG (80-95); ABG TCO2 18.5 MMOL/L (23-27); Allen Test Positive
[2019-08-04 05:29] LABS: Basophils % 0.4 % (0.0-0.8); Eosinophils % 0.2 % (0.00-10.9); Hemoglobin 10.6 GM/DL (12.0-16.0); Immature Granulocytes % 2.1 %; Immature Granulocytes Absolute 0.18 #; Lymphocytes # 0.8 10*3/uL (1.4-4.0); Mean Corpuscular HGB Conc 33.1 GM/DL (32-36); Mean Platelet Volume 8.9 FL (9.6-12.0); Monocytes % 5.8 % (1.7-12.7); Neutrophils % 82.5 % (38.7-73.9); Platelet Count 359 T/CUMM (130-400); Red Cell Distribution Width 12.1 % (9.3-17.3); White Blood Count 8.4 T/CUMM (4-12)
[2019-08-04 05:57] LABS: Albumin 1.8 G/DL (3.4-5.0); Bilirubin,Total 0.7 MG/DL (0.2-1.0); Calcium 8.1 MG/DL (8.5-10.1); Ferritin 478.6 ng/ml (8-252); Osmolality,Calculated 271.1 MOS/KG (273-304)
[2019-08-04] MEDS: LEVOTHYROXINE 100 MCG VIAL IV SCH (06:00)
[2019-08-04] MEDS: sulfaSALAzine 500 MG TABLET PO SCH ×3 (06:00→21:37)
[2019-08-04 07:26] LABS: Sedimentation Rate-Westergren 95 MM/HR (0-30)
[2019-08-04] MEDS: CALCIUM (CARBONATE)/VITAMIN D 600 MG-400 UNIT TABLET PO SCH (08:31)
[2019-08-04] MEDS: AZITHROMYCIN 250 MG TABLET PO SCH (08:31)
[2019-08-04] MEDS: FAMOTIDINE 20 MG/2 ML VIAL IV SCH ×2 (08:32→21:38)
[2019-08-04] MEDS: carvediloL 12.5 MG TABLET PO SCH ×2 (08:32→16:11)
[2019-08-04] MEDS: ESCITALOPRAM 10 MG TABLET PO SCH (08:32)
[2019-08-04] MEDS: cefTRIAXone 2,000 MG in SYRINGE 1 EACH IV SCH (08:32)
[2019-08-04] MEDS: ENOXAPARIN 40 MG/0.4 ML SYRINGE SUBCUT SCH ×2 (09:58→21:38)
[2019-08-04] MEDS ORDERED: DEXTROSE 50% 25 GM/50 ML VIAL IV PRN (10:40)
[2019-08-04] MEDS ORDERED: DEXTROSE 10% 250 ML BAG IV PRN (10:43)
[2019-08-04] MEDS: INSULIN LISPRO 100 UNIT/ML SUBCUT SCH ×3 (13:13→21:37)
[2019-08-04] MEDS: SODIUM CHLOR 0.9% KCL 40 MEQ 40 MEQ/1,000 ML BAG IV SCH ×2 (14:44→21:35)
[2019-08-04] MEDS: TOPIRAMATE 25 MG TABLET PO SCH (21:37)
[2019-08-05 05:37] LABS: ABG Base Excess -2.6 MMOL/L (-2.5-2.5); ABG HCO3 22.1 MMOL/L (20-26); ABG Oxygen Saturation 92.7 % (95-100); ABG PCO2 27.4 MM HG (35-48); ABG PO2 60.9 MM HG (80-95); ABG TCO2 17.8 MMOL/L (23-27); Allen Test Positive; Pt O2 Delivery Device Other
[2019-08-05 07:27] LABS: Basophils % 0.3 % (0.0-0.8); Eosinophils # 0.1 10*3/uL (0.0-0.87); Hematocrit 28.9 VOL% (35.7-47.0); Hemoglobin 9.5 GM/DL (12.0-16.0); Immature Granulocytes % 3.1 %; Immature Granulocytes Absolute 0.21 #; Lymphocytes # 0.8 10*3/uL (1.4-4.0); Lymphocytes % 12.3 % (21.3-54.2); Mean Corpuscular HGB Conc 32.9 GM/DL (32-36); Mean Corpuscular Volume 99.3 FL (87-102); Mean Platelet Volume 8.9 FL (9.6-12.0); Monocytes % 5.2 % (1.7-12.7); Neutrophils % 78.1 % (38.7-73.9); Platelet Count 352 T/CUMM (130-400); Red Blood Count 2.91 MC/CUMM (3.8-5.5); White Blood Count 6.7 T/CUMM (4-12)
[2019-08-05 08:49] LABS: Sedimentation Rate-Westergren 111 MM/HR (0-30)
[2019-08-05] MEDS: INSULIN LISPRO 100 UNIT/ML SUBCUT SCH ×4 (09:09→21:34)
[2019-08-05] MEDS: carvediloL 12.5 MG TABLET PO SCH ×2 (10:20→17:12)
[2019-08-05] MEDS: ESCITALOPRAM 10 MG TABLET PO SCH (10:20)
[2019-08-05] MEDS: CALCIUM (CARBONATE)/VITAMIN D 600 MG-400 UNIT TABLET PO SCH (10:20)
[2019-08-05] MEDS: ENOXAPARIN 40 MG/0.4 ML SYRINGE SUBCUT SCH ×2 (10:30→21:03)
[2019-08-05] MEDS: AZITHROMYCIN 250 MG TABLET PO SCH (10:30)
[2019-08-05] MEDS: cefTRIAXone 2,000 MG in SYRINGE 1 EACH IV SCH (10:35)
[2019-08-05] MEDS: SODIUM CHLOR 0.9% KCL 40 MEQ 40 MEQ/1,000 ML BAG IV SCH ×2 (10:35→21:34)
[2019-08-05] MEDS: sulfaSALAzine 500 MG TABLET PO SCH ×3 (11:08→21:02)
[2019-08-05] MEDS: LEVOTHYROXINE 100 MCG VIAL IV SCH (11:11)
[2019-08-05] MEDS: FAMOTIDINE 20 MG/2 ML VIAL IV SCH (11:12)
[2019-08-05] MEDS: levETIRAcetam 500 MG TABLET PO SCH (21:03)
[2019-08-05] MEDS: TOPIRAMATE 25 MG TABLET PO SCH (21:03)
[2019-08-06 04:52] LABS: Allen Test Positive
[2019-08-06 04:53] LABS: ABG HCO3 18.9 MMOL/L (20-26); ABG Oxygen Saturation 93.4 % (95-100); ABG PCO2 24.9 MM HG (35-48); ABG PH 7.499 (7.35-7.45); ABG PO2 66.5 MM HG (80-95); ABG TCO2 19.7 MMOL/L (23-27)
[2019-08-06] MEDS: sulfaSALAzine 500 MG TABLET PO SCH ×3 (05:27→21:45)
[2019-08-06 05:41] LABS: Basophils % 0.5 % (0.0-0.8); Eosinophils # 0.1 10*3/uL (0.0-0.87); Hematocrit 32.9 VOL% (35.7-47.0); Hemoglobin 11.1 GM/DL (12.0-16.0); Immature Granulocytes Absolute 0.24 #; Lymphocytes % 12.5 % (21.3-54.2); Mean Corpuscular HGB Conc 33.7 GM/DL (32-36); Mean Corpuscular Volume 95.6 FL (87-102); Mean Platelet Volume 8.9 FL (9.6-12.0); Monocytes % 7.4 % (1.7-12.7); Neutrophils % 75.6 % (38.7-73.9); Platelet Count 417 T/CUMM (130-400); Red Blood Count 3.44 MC/CUMM (3.8-5.5); Red Cell Distribution Width 11.9 % (9.3-17.3)
[2019-08-06] MEDS: SODIUM CHLOR 0.9% KCL 40 MEQ 40 MEQ/1,000 ML BAG IV SCH ×3 (05:58→21:45)
[2019-08-06 06:03] LABS: Eosinophils 1 % (0-10); Lymphocytes 10 % (20-55); Segmented Neutrophils 82 % (50-85); Total Cells Counted 100
[2019-08-06 06:04] LABS: Bilirubin,Total 0.7 MG/DL (0.2-1.0); Calcium 8.5 MG/DL (8.5-10.1); Ferritin 444.5 ng/ml (8-252); Hypochromasia Slight; Microcytosis Slight; Osmolality,Calculated 259.7 MOS/KG (273-304); Polychromasia Slight; Total Protein 6.5 G/DL (6.4-8.3)
[2019-08-06 06:05] LABS: Platelet Estimate Increased
[2019-08-06 06:52] LABS: Sedimentation Rate-Westergren 85 MM/HR (0-30)
[2019-08-06] MEDS: INSULIN LISPRO 100 UNIT/ML SUBCUT SCH ×3 (10:21→17:53)
[2019-08-06] MEDS: cefTRIAXone 2,000 MG in SYRINGE 1 EACH IV SCH (10:57)
[2019-08-06] MEDS: LEVOTHYROXINE 25 MCG TABLET PO SCH (14:05)
[2019-08-06] MEDS: amLODIPine 5 MG TABLET PO SCH (14:05)
[2019-08-06] MEDS: ENOXAPARIN 40 MG/0.4 ML SYRINGE SUBCUT SCH ×2 (14:08→21:45)
[2019-08-06] MEDS: ESCITALOPRAM 10 MG TABLET PO SCH (14:10)
[2019-08-06] MEDS: levETIRAcetam 500 MG TABLET PO SCH ×2 (14:10→21:45)
[2019-08-06] MEDS: carvediloL 12.5 MG TABLET PO SCH ×2 (14:16→16:42)
[2019-08-06] MEDS: CALCIUM (CARBONATE)/VITAMIN D 600 MG-400 UNIT TABLET PO SCH (14:16)
[2019-08-06] MEDS: TOPIRAMATE 25 MG TABLET PO SCH (21:45)
[2019-08-07] MEDS: INSULIN LISPRO 100 UNIT/ML SUBCUT SCH ×5 (02:26→20:05)
[2019-08-07 04:20] LABS: Allen Test Positive
[2019-08-07 04:21] LABS: ABG Base Excess -3.9 MMOL/L (-2.5-2.5); ABG HCO3 21.1 MMOL/L (20-26); ABG Oxygen Saturation 93.1 % (95-100); ABG PH 7.452 (7.35-7.45); ABG TCO2 16.8 MMOL/L (23-27)
[2019-08-07] MEDS: sulfaSALAzine 500 MG TABLET PO SCH ×3 (06:50→20:05)
[2019-08-07 08:01] LABS: Basophils % 0.4 % (0.0-0.8); Eosinophils # 0.1 10*3/uL (0.0-0.87); Eosinophils % 1.4 % (0.00-10.9); Hematocrit 34.4 VOL% (35.7-47.0); Hemoglobin 11.3 GM/DL (12.0-16.0); Immature Granulocytes % 2.3 %; Immature Granulocytes Absolute 0.17 #; Lymphocytes % 14.2 % (21.3-54.2); Mean Corpuscular HGB Conc 32.8 GM/DL (32-36); Mean Corpuscular Volume 96.4 FL (87-102); Mean Platelet Volume 8.9 FL (9.6-12.0); Neutrophils % 72.7 % (38.7-73.9); Platelet Count 458 T/CUMM (130-400); Red Blood Count 3.57 MC/CUMM (3.8-5.5); Red Cell Distribution Width 11.9 % (9.3-17.3); White Blood Count 7.3 T/CUMM (4-12)
[2019-08-07 08:46] LABS: Bilirubin,Total 0.8 MG/DL (0.2-1.0); Calcium 8.6 MG/DL (8.5-10.1); Ferritin 421.4 ng/ml (8-252); Osmolality,Calculated 263.4 MOS/KG (273-304); Total Protein 6.7 G/DL (6.4-8.3)
[2019-08-07] MEDS: CALCIUM (CARBONATE)/VITAMIN D 600 MG-400 UNIT TABLET PO SCH (09:09)
[2019-08-07] MEDS: ESCITALOPRAM 10 MG TABLET PO SCH (09:09)
[2019-08-07] MEDS: LEVOTHYROXINE 25 MCG TABLET PO SCH (09:09)
[2019-08-07] MEDS: carvediloL 12.5 MG TABLET PO SCH ×2 (09:09→17:13)
[2019-08-07] MEDS: amLODIPine 5 MG TABLET PO SCH (09:09)
[2019-08-07] MEDS: levETIRAcetam 500 MG TABLET PO SCH ×2 (09:09→20:05)
[2019-08-07 09:10] LABS: Sedimentation Rate-Westergren 101 MM/HR (0-30)
[2019-08-07] MEDS: ENOXAPARIN 40 MG/0.4 ML SYRINGE SUBCUT SCH ×2 (09:10→20:05)
[2019-08-07] MEDS: SODIUM CHLOR 0.9% KCL 40 MEQ 40 MEQ/1,000 ML BAG IV SCH ×3 (09:11→19:06)
[2019-08-07] MEDS: ZINC OXIDE PASTE 113 GM TUBE TOP SCH (17:55)
[2019-08-07] MEDS: TOPIRAMATE 25 MG TABLET PO SCH (20:05)
[2019-08-08] MEDS: SODIUM CHLOR 0.9% KCL 40 MEQ 40 MEQ/1,000 ML BAG IV SCH (03:25)
[2019-08-08] MEDS: ZINC OXIDE PASTE 113 GM TUBE TOP SCH ×2 (03:25→09:31)
[2019-08-08] MEDS: sulfaSALAzine 500 MG TABLET PO SCH ×2 (04:55→15:05)
[2019-08-08 05:47] LABS: Basophils % 0.5 % (0.0-0.8); Eosinophils # 0.1 10*3/uL (0.0-0.87); Eosinophils % 1.2 % (0.00-10.9); Hematocrit 32.9 VOL% (35.7-47.0); Hemoglobin 10.7 GM/DL (12.0-16.0); Immature Granulocytes % 1.9 %; Immature Granulocytes Absolute 0.14 #; Lymphocytes # 1.2 10*3/uL (1.4-4.0); Lymphocytes % 16.5 % (21.3-54.2); Mean Corpuscular HGB Conc 32.5 GM/DL (32-36); Mean Corpuscular Volume 98.8 FL (87-102); Mean Platelet Volume 8.7 FL (9.6-12.0); Monocytes % 11.2 % (1.7-12.7); Neutrophils % 68.7 % (38.7-73.9); Platelet Count 466 T/CUMM (130-400); Red Blood Count 3.33 MC/CUMM (3.8-5.5); Red Cell Distribution Width 11.9 % (9.3-17.3); White Blood Count 7.4 T/CUMM (4-12)
[2019-08-08 06:07] LABS: Albumin 1.9 G/DL (3.4-5.0); Bilirubin,Total 0.4 MG/DL (0.2-1.0); Calcium 8.4 MG/DL (8.5-10.1); Ferritin 359.6 ng/ml (8-252); Osmolality,Calculated 260.7 MOS/KG (273-304); Total Protein 6.3 G/DL (6.4-8.3)
[2019-08-08 07:39] LABS: Sedimentation Rate-Westergren 104 MM/HR (0-30)
[2019-08-08] MEDS: INSULIN LISPRO 100 UNIT/ML SUBCUT SCH ×2 (08:38→12:10)
[2019-08-08] MEDS: ESCITALOPRAM 10 MG TABLET PO SCH (09:31)
[2019-08-08] MEDS: levETIRAcetam 500 MG TABLET PO SCH (09:31)
[2019-08-08] MEDS: ENOXAPARIN 40 MG/0.4 ML SYRINGE SUBCUT SCH (09:31)
[2019-08-08] MEDS: amLODIPine 5 MG TABLET PO SCH (09:31)
[2019-08-08] MEDS: carvediloL 12.5 MG TABLET PO SCH (09:31)
[2019-08-08] MEDS: CALCIUM (CARBONATE)/VITAMIN D 600 MG-400 UNIT TABLET PO SCH (09:31)
[2019-08-08] MEDS: LEVOTHYROXINE 25 MCG TABLET PO SCH (09:32)
[2019-08-08 13:08] VITALS: BP 141/71
== END 2019-08-08 15:39 | DRG 177 ==
LOC: N.ED 21:06 → SUPCPDRO 08-02 01:39 → N.EDINP 08-02 01:39 → N.2E 08-02 02:15 → N.2W 08-02 02:26 → N.2E 08-02 04:29 → N.2W 08-04 17:05
PROVIDERS: ADMIT Internal Medicine; ATTEND Internal Medicine

== ENCOUNTER 2020-12-29 11:39 | Observation (INO) ==
[2020-12-29] MEDS ORDERED: NITROGLYCERIN SL 0.4 MG TABLET SL PRN (12:09)
[2020-12-29 12:28] LABS: Basophils % 0.6 % (0.0-0.8); Eosinophils % 0.6 % (0.00-10.9); Hematocrit 34.3 VOL% (35.7-47.0); Hemoglobin 11.3 GM/DL (12.0-16.0); Immature Granulocytes % 0.4 %; Immature Granulocytes Absolute 0.02 #; Lymphocytes # 1.6 10*3/uL (1.4-4.0); Lymphocytes % 32.6 % (21.3-54.2); Mean Corpuscular HGB Conc 32.9 GM/DL (32-36); Mean Corpuscular Volume 101.2 FL (87-102); Mean Platelet Volume 8.8 FL (9.6-12.0); Monocytes % 7.6 % (1.7-12.7); Neutrophils % 58.2 % (38.7-73.9); Platelet Count 237 T/CUMM (130-400); Red Blood Count 3.39 MC/CUMM (3.8-5.5); Red Cell Distribution Width 11.8 % (9.3-17.3); White Blood Count 4.9 T/CUMM (4-12)
[2020-12-29 13:08] LABS: Alanine Aminotransferase 16 U/L (13-56); Albumin 3.5 G/DL (3.4-5.0); Alkaline Phosphatase 107 U/L (45-117); Aspartate Amino Transferase 15 U/L (0-37); Bilirubin,Total < 0.39 MG/DL (0.20-1.00); Blood Urea Nitrogen 14 MG/DL (7-18); Calcium 9.1 MG/DL (8.5-10.1); Carbon Dioxide 26 MMOL/L (21-32); Estimated Glom Filtration Rate 58 ML/MIN; Glucose 98 MG/DL (74-106); Osmolality,Calculated 281.3 MOS/KG (273-304); Potassium 3.9 MMOL/L (3.5-5.1); Sodium 141 MMOL/L (136-145)
[2020-12-29] MEDS ORDERED: ONDANSETRON 4 MG/2 ML VIAL IV PRN (13:39)
[2020-12-29] MEDS ORDERED: ACETAMINOPHEN 325 MG TABLET PO PRN (13:39)
[2020-12-29] MEDS ORDERED: GLUCAGON 1 MG VIAL IM PRN (13:39)
[2020-12-29] MEDS ORDERED: DOCUSATE SODIUM 100 MG CAPSULE PO PRN (13:39)
[2020-12-29] MEDS ORDERED: hydrALAZINE 20 MG/1 ML VIAL IV PRN (13:39)
[2020-12-29] MEDS ORDERED: MORPHINE 2 MG/1 ML SYRINGE IV PRN (13:39)
[2020-12-29] MEDS ORDERED: DEXTROSE 50% 25 GM/50 ML VIAL IV PRN (13:39)
[2020-12-29] MEDS: ENOXAPARIN 40 MG/0.4 ML SYRINGE SUBCUT SCH (14:19)
[2020-12-29] MEDS: sulfaSALAzine 500 MG TABLET PO SCH ×2 (19:51→22:05)
[2020-12-29] MEDS ORDERED: MELATONIN 3 MG TABLET PO SCH (21:00)
[2020-12-29] MEDS ORDERED: TOPIRAMATE 25 MG TABLET PO SCH (21:00)
[2020-12-29] MEDS: carvediloL 12.5 MG TABLET PO SCH (22:04)
[2020-12-29] MEDS: levETIRAcetam 500 MG TABLET PO SCH (22:05)
[2020-12-29] MEDS: MEMANTINE 10 MG TABLET PO SCH (22:05)
[2020-12-30 05:14] LABS: Basophils % 0.9 % (0.0-0.8); Eosinophils % 0.6 % (0.00-10.9); Hematocrit 32.6 VOL% (35.7-47.0); Hemoglobin 10.7 GM/DL (12.0-16.0); Immature Granulocytes % 0.4 %; Immature Granulocytes Absolute 0.02 #; Lymphocytes # 1.7 10*3/uL (1.4-4.0); Lymphocytes % 35.9 % (21.3-54.2); Mean Corpuscular HGB Conc 32.8 GM/DL (32-36); Mean Corpuscular Volume 101.9 FL (87-102); Mean Platelet Volume 8.9 FL (9.6-12.0); Monocytes % 9.5 % (1.7-12.7); Neutrophils % 52.7 % (38.7-73.9); Platelet Count 218 T/CUMM (130-400); Red Cell Distribution Width 11.9 % (9.3-17.3); White Blood Count 4.7 T/CUMM (4-12)
[2020-12-30] MEDS: sulfaSALAzine 500 MG TABLET PO SCH ×2 (05:20→15:03)
[2020-12-30 05:36] LABS: Calcium 8.7 MG/DL (8.5-10.1); Osmolality,Calculated 285.1 MOS/KG (273-304)
[2020-12-30] MEDS ORDERED: SODIUM CHLORIDE 0.9% 1,000 ML IV SCH (07:30)
[2020-12-30 08:26] LABS: Risk Ratio 5.49; VLDL Cholesterol 32.2 MG/DL
[2020-12-30] MEDS ORDERED: MULTIVITAMIN (CENTRUM) TABLET PO SCH (09:00)
[2020-12-30] MEDS ORDERED: DOCUSATE SODIUM 100 MG CAPSULE PO SCH (09:00)
[2020-12-30] MEDS ORDERED: PANTOPRAZOLE 40 MG TABLET PO SCH (09:00)
[2020-12-30] MEDS ORDERED: LEVOTHYROXINE 25 MCG TABLET PO SCH (09:00)
[2020-12-30] MEDS ORDERED: ESCITALOPRAM 10 MG TABLET PO SCH (09:00)
[2020-12-30] MEDS ORDERED: TOLTERODINE LA 2 MG CAPSULE PO SCH (09:00)
[2020-12-30] MEDS ORDERED: THIAMINE 100 MG TABLET PO SCH (09:00)
[2020-12-30] MEDS ORDERED: GABAPENTIN 100 MG CAPSULE PO SCH (09:00)
[2020-12-30] MEDS ORDERED: amLODIPine 5 MG TABLET PO SCH (09:00)
[2020-12-30] MEDS: levETIRAcetam 500 MG TABLET PO SCH (09:04)
[2020-12-30] MEDS: MEMANTINE 10 MG TABLET PO SCH (09:04)
[2020-12-30] MEDS: carvediloL 12.5 MG TABLET PO SCH (10:57)
[2020-12-30 12:13] VITALS: BP 141/74
[2020-12-30] MEDS: ENOXAPARIN 40 MG/0.4 ML SYRINGE SUBCUT SCH (15:03)
== END 2020-12-30 14:23 ==
LOC: EDUNIT# → EDBD → N.EDINP 11:39 → N.ED 11:39 → N.EDINP 19:54 → N.TELEN 19:56
PROVIDERS: ADMIT Internal Medicine; ATTEND Internal Medicine

== ENCOUNTER 2022-02-20 12:34 | Inpatient (IN) ==
[2022-02-20] MEDS ORDERED: SODIUM CHLORIDE 0.9% 1,000 ML IV STA (14:35)
[2022-02-20 14:54] LABS: Basophils # 0.1 10*3/uL (0.0-0.2); Basophils % 0.8 % (0.0-0.8); Eosinophils % 0.5 % (0.00-10.9); Hematocrit 31.8 VOL% (35.7-47.0); Hemoglobin 10.5 GM/DL (12.0-16.0); Immature Granulocytes % 0.3 %; Immature Granulocytes Absolute 0.02 #; Lymphocytes # 1.2 10*3/uL (1.4-4.0); Lymphocytes % 20.2 % (21.3-54.2); Mean Corpuscular Volume 101.3 FL (87-102); Mean Platelet Volume 8.9 FL (9.6-12.0); Monocytes # 0.4 10*3/uL (0.11-0.8); Monocytes % 6.9 % (1.7-12.7); Neutrophils % 71.3 % (38.7-73.9); Platelet Count 206 T/CUMM (130-400); Red Blood Count 3.14 MC/CUMM (3.8-5.5); Red Cell Distribution Width 12.9 % (9.3-17.3); White Blood Count 6.1 T/CUMM (4-12)
[2022-02-20 15:38] LABS: Alanine Aminotransferase 13 U/L (13-56); Albumin 3.5 G/DL (3.4-5.0); Alkaline Phosphatase 121 U/L (45-117); Aspartate Amino Transferase 15 U/L (0-37); Bilirubin,Total < 0.39 MG/DL (0.20-1.00); Blood Urea Nitrogen 23 MG/DL (7-18); Calcium 8.9 MG/DL (8.5-10.1); Carbon Dioxide 23 MMOL/L (21-32); Chloride 110 MMOL/L (98-107); Glucose 120 MG/DL (74-106); Osmolality,Calculated 283.4 MOS/KG (273-304); Potassium 3.5 MMOL/L (3.5-5.1); Sodium 140 MMOL/L (136-145); Total Protein 6.4 G/DL (6.4-8.2)
[2022-02-20 16:56] LABS: Bacteria,Urine Many /HPF (Few); Bilirubin,Urine Negative (Negative); Blood, Urine Small mg/dL (Negative); Glucose,Urine (UA) Negative (Negative); Hyaline Casts,Urine 8 /LPF (0-3); Ketones,Urine Trace mg/dL (Negative); Mucus,Urine Many /LPF (Occasional); Nitrite,Urine Negative (Negative); Protein,Urine 30 mg/dL (Negative); RBC,Urine 7 /HPF (0-4); Squamous Epithelial Cell,Urine Occasional /HPF (0-10); Urine Appearance Clear (Clear); Urine Color Yellow (Yellow); Urine Urobilinogen 0.2 eU/dL (<2.0); Urine pH 5.5 (4.5-8.0)
[2022-02-20] MEDS ORDERED: ACETAMINOPHEN 500 MG TABLET PO PRN (18:13)
[2022-02-20] MEDS ORDERED: NITROGLYCERIN SL 0.4 MG TABLET SL PRN (18:13)
[2022-02-20] MEDS ORDERED: ONDANSETRON 4 MG/2 ML VIAL IV PRN (18:16)
[2022-02-20] MEDS: LACTATED RINGERS 1,000 ML IV SCH (19:00)
[2022-02-20] MEDS: cefTRIAXone 1,000 MG in SODIUM CHLORIDE 0.9% 100 ML IV SCH (22:55)
[2022-02-20] MEDS: MEMANTINE 10 MG TABLET PO SCH (22:57)
[2022-02-20] MEDS: levETIRAcetam 500 MG TABLET PO SCH (22:57)
[2022-02-20] MEDS: carvediloL 12.5 MG TABLET PO SCH (22:57)
[2022-02-20] MEDS: sulfaSALAzine 500 MG TABLET PO SCH (23:00)
[2022-02-20] MEDS: TOPIRAMATE 100 MG TABLET PO SCH (23:25)
[2022-02-21 04:43] LABS: Basophils # 0.1 10*3/uL (0.0-0.2); Basophils % 1.1 % (0.0-0.8); Eosinophils # 0.1 10*3/uL (0.0-0.87); Eosinophils % 1.6 % (0.00-10.9); Hematocrit 29.8 VOL% (35.7-47.0); Hemoglobin 9.7 GM/DL (12.0-16.0); Immature Granulocytes % 0.2 %; Immature Granulocytes Absolute 0.01 #; Lymphocytes # 2.1 10*3/uL (1.4-4.0); Lymphocytes % 46.7 % (21.3-54.2); Mean Corpuscular HGB Conc 32.6 GM/DL (32-36); Mean Corpuscular Volume 102.8 FL (87-102); Mean Platelet Volume 8.9 FL (9.6-12.0); Monocytes # 0.4 10*3/uL (0.11-0.8); Monocytes % 8.9 % (1.7-12.7); Neutrophils % 41.5 % (38.7-73.9); Platelet Count 171 T/CUMM (130-400); Red Cell Distribution Width 13.1 % (9.3-17.3); White Blood Count 4.4 T/CUMM (4-12)
[2022-02-21 05:01] LABS: Calcium 8.4 MG/DL (8.5-10.1); Potassium 3.2 MMOL/L (3.5-5.1)
[2022-02-21] MEDS: LACTATED RINGERS 1,000 ML IV SCH ×2 (05:36→21:04)
[2022-02-21] MEDS: sulfaSALAzine 500 MG TABLET PO SCH ×3 (05:37→20:46)
[2022-02-21] MEDS: LEVOTHYROXINE 25 MCG TABLET PO SCH (05:51)
[2022-02-21] MEDS: MULTIVITAMIN (CENTRUM) TABLET PO SCH (11:25)
[2022-02-21] MEDS: DOCUSATE SODIUM 100 MG CAPSULE PO SCH (11:26)
[2022-02-21] MEDS: CALCIUM (CARBONATE)/VITAMIN D 600 MG-400 UNIT TABLET PO SCH (11:26)
[2022-02-21] MEDS: TOLTERODINE LA 2 MG CAPSULE PO SCH (11:26)
[2022-02-21] MEDS: THIAMINE 100 MG TABLET PO SCH (11:26)
[2022-02-21] MEDS: PANTOPRAZOLE 40 MG TABLET PO SCH (11:27)
[2022-02-21] MEDS: amLODIPine 5 MG TABLET PO SCH (11:27)
[2022-02-21] MEDS: MEMANTINE 10 MG TABLET PO SCH ×2 (11:27→21:04)
[2022-02-21] MEDS: GABAPENTIN 100 MG CAPSULE PO SCH (11:27)
[2022-02-21] MEDS: levETIRAcetam 500 MG TABLET PO SCH ×2 (11:27→21:04)
[2022-02-21] MEDS: SERTRALINE 25 MG TABLET PO SCH (11:27)
[2022-02-21] MEDS: carvediloL 12.5 MG TABLET PO SCH (12:25)
[2022-02-21] MEDS: POTASSIUM CHLORIDE 20 MEQ TABLET PO PRN (18:17)
[2022-02-21] MEDS: cefTRIAXone 1,000 MG in SODIUM CHLORIDE 0.9% 100 ML IV SCH (19:43)
[2022-02-21] MEDS: TOPIRAMATE 100 MG TABLET PO SCH (21:04)
[2022-02-22] MEDS: LACTATED RINGERS 1,000 ML IV SCH ×3 (01:49→21:21)
[2022-02-22 05:36] LABS: Basophils # 0.1 10*3/uL (0.0-0.2); Basophils % 1.2 % (0.0-0.8); Eosinophils # 0.1 10*3/uL (0.0-0.87); Hematocrit 30.1 VOL% (35.7-47.0); Hemoglobin 9.9 GM/DL (12.0-16.0); Immature Granulocytes % 0.2 %; Immature Granulocytes Absolute 0.01 #; Lymphocytes # 1.7 10*3/uL (1.4-4.0); Mean Corpuscular HGB Conc 32.9 GM/DL (32-36); Mean Corpuscular Volume 103.1 FL (87-102); Mean Platelet Volume 9.3 FL (9.6-12.0); Monocytes # 0.5 10*3/uL (0.11-0.8); Monocytes % 9.3 % (1.7-12.7); Neutrophils % 52.3 % (38.7-73.9); Platelet Count 193 T/CUMM (130-400); Red Blood Count 2.92 MC/CUMM (3.8-5.5); White Blood Count 4.9 T/CUMM (4-12)
[2022-02-22 05:48] LABS: Calcium 8.9 MG/DL (8.5-10.1); Osmolality,Calculated 288.6 MOS/KG (273-304)
[2022-02-22 06:04] LABS: Folate 3.62 NG/ML (5.38-24.0)
[2022-02-22] MEDS: LEVOTHYROXINE 25 MCG TABLET PO SCH (06:11)
[2022-02-22] MEDS: sulfaSALAzine 500 MG TABLET PO SCH ×3 (06:11→22:27)
[2022-02-22] MEDS: MULTIVITAMIN (CENTRUM) TABLET PO SCH (09:59)
[2022-02-22] MEDS: DOCUSATE SODIUM 100 MG CAPSULE PO SCH (09:59)
[2022-02-22] MEDS: SERTRALINE 25 MG TABLET PO SCH (09:59)
[2022-02-22] MEDS: MEMANTINE 10 MG TABLET PO SCH ×2 (09:59→21:21)
[2022-02-22] MEDS: levETIRAcetam 500 MG TABLET PO SCH ×2 (09:59→21:20)
[2022-02-22] MEDS: amLODIPine 5 MG TABLET PO SCH (09:59)
[2022-02-22] MEDS: GABAPENTIN 100 MG CAPSULE PO SCH (09:59)
[2022-02-22] MEDS: PANTOPRAZOLE 40 MG TABLET PO SCH (09:59)
[2022-02-22] MEDS: CALCIUM (CARBONATE)/VITAMIN D 600 MG-400 UNIT TABLET PO SCH (09:59)
[2022-02-22] MEDS: ROSUVASTATIN 20 MG TABLET PO SCH (09:59)
[2022-02-22] MEDS: THIAMINE 100 MG TABLET PO SCH (09:59)
[2022-02-22] MEDS: FOLIC ACID 1 MG TABLET PO SCH (09:59)
[2022-02-22] MEDS: TOLTERODINE LA 2 MG CAPSULE PO SCH (10:00)
[2022-02-22] MEDS: POTASSIUM CHLORIDE 20 MEQ TABLET PO PRN ×4 (10:42→21:21)
[2022-02-22] MEDS: cefTRIAXone 1,000 MG in SODIUM CHLORIDE 0.9% 100 ML IV SCH (20:07)
[2022-02-22] MEDS: TOPIRAMATE 100 MG TABLET PO SCH (21:20)
[2022-02-23] MEDS: LEVOTHYROXINE 25 MCG TABLET PO SCH (06:11)
[2022-02-23] MEDS: sulfaSALAzine 500 MG TABLET PO SCH (06:12)
[2022-02-23] MEDS ORDERED: DIAZEPAM 5 MG TABLET PO ONE (07:01)
[2022-02-23] MEDS ORDERED: NALOXONE 0.4 MG/ML VIAL IV PRN (07:01)
[2022-02-23] MEDS ORDERED: diphenhydrAMINE CAP 25 MG CAPSULE PO ONE (07:01)
[2022-02-23] MEDS ORDERED: flumazeniL 0.5 MG/5 ML VIAL IV PRN (07:01)
[2022-02-23] MEDS ORDERED: ceFAZolin 1,000 MG VIAL IRRIG ONE (07:01)
[2022-02-23 07:06] LABS: Eosinophils # 0.1 10*3/uL (0.0-0.87); Eosinophils % 2.7 % (0.00-10.9); Hematocrit 29.9 VOL% (35.7-47.0); Hemoglobin 9.7 GM/DL (12.0-16.0); Immature Granulocytes % 0.2 %; Immature Granulocytes Absolute 0.01 #; Lymphocytes # 1.6 10*3/uL (1.4-4.0); Lymphocytes % 38.2 % (21.3-54.2); Mean Corpuscular HGB Conc 32.4 GM/DL (32-36); Mean Corpuscular Volume 103.1 FL (87-102); Monocytes # 0.4 10*3/uL (0.11-0.8); Monocytes % 8.7 % (1.7-12.7); Neutrophils % 49.2 % (38.7-73.9); Platelet Count 206 T/CUMM (130-400); Red Cell Distribution Width 13.1 % (9.3-17.3); White Blood Count 4.1 T/CUMM (4-12)
[2022-02-23 07:26] LABS: Calcium 8.7 MG/DL (8.5-10.1); Osmolality,Calculated 284.8 MOS/KG (273-304); Potassium 3.9 MMOL/L (3.5-5.1)
[2022-02-23] MEDS: LACTATED RINGERS 1,000 ML IV SCH (07:27)
[2022-02-23] MEDS ORDERED: HEPARIN/NACL 0.9% 2 UNITS/ML 1,000 UNIT/500 ML BAG IV ONE (08:29)
[2022-02-23] MEDS ORDERED: LIDOCAINE 1%/EPI INJ 20 ML VIAL ONE (08:29)
[2022-02-23] MEDS ORDERED: ceFAZolin 1,000 MG VIAL ONE (08:30)
[2022-02-23] MEDS ORDERED: MIDAZOLAM 2 MG/2 ML VIAL ONE (08:49)
[2022-02-23] MEDS ORDERED: fentaNYL 100 MCG/2 ML VIAL ONE (08:49)
[2022-02-23] MEDS ORDERED: diphenhydrAMINE 50 MG/1 ML VIAL ONE (09:02)
[2022-02-23 12:03] VITALS: BP 135/72
[2022-02-23] MEDS: ROSUVASTATIN 20 MG TABLET PO SCH (12:39)
[2022-02-23] MEDS: TOLTERODINE LA 2 MG CAPSULE PO SCH (12:39)
[2022-02-23] MEDS: amLODIPine 5 MG TABLET PO SCH (12:39)
[2022-02-23] MEDS: levETIRAcetam 500 MG TABLET PO SCH (12:39)
[2022-02-23] MEDS: DOCUSATE SODIUM 100 MG CAPSULE PO SCH (12:39)
[2022-02-23] MEDS: CALCIUM (CARBONATE)/VITAMIN D 600 MG-400 UNIT TABLET PO SCH (12:39)
[2022-02-23] MEDS: MULTIVITAMIN (CENTRUM) TABLET PO SCH (12:40)
[2022-02-23] MEDS: MEMANTINE 10 MG TABLET PO SCH (12:40)
[2022-02-23] MEDS: PANTOPRAZOLE 40 MG TABLET PO SCH (12:40)
[2022-02-23] MEDS: THIAMINE 100 MG TABLET PO SCH (12:40)
[2022-02-23] MEDS: GABAPENTIN 100 MG CAPSULE PO SCH (12:40)
[2022-02-23] MEDS: SERTRALINE 25 MG TABLET PO SCH (12:40)
[2022-02-23] MEDS: FOLIC ACID 1 MG TABLET PO SCH (12:40)
[2022-02-24] MEDS ORDERED: amLODIPine 10 MG TABLET PO SCH (09:00)
== END 2022-02-23 13:29 | DRG 259 ==
LOC: N.EDINP 12:34 → N.ED 12:34 → N.EDINP 02-21 07:45 → N.TELES 02-21 08:38
PROVIDERS: ADMIT Internal Medicine; ATTEND Internal Medicine